=== PATIENT | male | born 1990 | race Caucasian/White ===

== ENCOUNTER 2016-08-15 10:11 | Emergency (ER) | payer OTHER | END 2016-08-15 12:22 | disposition home or self-care (01) | LOC: ER 10:11 | DX: S60.041A Contusion of right ring finger without damage to nail, initial encounter (principal); L03.011 Cellulitis of right finger; W23.0XXA Caught, crushed, jammed, or pinched between moving objects, initial encounter; Y92.019 Unspecified place in single-family (private) house as the place of occurrence of the external cause; Z79.899 Other long term (current) drug therapy | CPT/HCPCS: 29130; 73140; 96372; 99283-25 ==